=== PATIENT | male | born 1930 | race Caucasian/White ===

== ENCOUNTER → 2016-08-26 | Outpatient (CLI) | payer OTHER ==
[~2016-08-26] MED LIST: ALBUTEROL0.63 MG/3 INH; ANTIVERT 25MG T25 MG PO; ASPIRIN EC81 MG PO; CIPRO500 MG PO; DICLOFENAC POTA50 MG PO; ESCITALOPRAM OX20 MG PO; FLAGYL500 MG PO; FLOMAX 0.4 MG0.4 MG PO; FUROSEMIDE20 MG PO; LISINOPRIL20 MG PO; MELATONIN1 MG PO; METOPROLOL SUCC50 MG PO; NEPRO PO; NITROSTAT0.4 MG SL; NORVASC 5 MG TAB5 MG PO; OMEPRAZOLE40 MG PO; PROTONIX 40 MG40 M1 PO; TRAMADOL HCL50 MG PO; [UNRECOGNIZED DRUG - OTHER] PO
== END ==
LOC: US 07-31 09:30 → KOH-I 09:17 → US 09:30
DX: R74.8 Abnormal levels of other serum enzymes (principal); K82.9 Disease of gallbladder, unspecified
CPT/HCPCS: 76705